=== PATIENT | male | born 1945 | race Caucasian/White ===

== ENCOUNTER → 2017-09-07 | Outpatient (CLI) | payer OTHER ==
[~2017-09-07] MED LIST: ADULT LOW DOSE81 MG PO; ANDROGEL1.25 GM TD; ATORVASTATIN CA40 MG PO; CENTRUM SILVER1 EAC4 PO; CIALIS10 MG PO; GLUCOPHAGE500 MG PO; GLYBURIDE 2.52.5 M1 PO; IBUPROFEN 200200 M1 PO; NITROGLYCERIN0.4 MG SUBLING; OMEGA 3-6-9 CO1 EACH PO; TOPROL XL25 MG PO
== END ==
LOC: ULTRA 08:42
DX: K21.9 Gastro-esophageal reflux disease without esophagitis (principal); K31.89 Other diseases of stomach and duodenum; K80.80 Other cholelithiasis without obstruction; N28.1 Cyst of kidney, acquired; E11.9 Type 2 diabetes mellitus without complications; I25.10 Atherosclerotic heart disease of native coronary artery without angina pectoris; G47.33 Obstructive sleep apnea (adult) (pediatric); N52.8 Other male erectile dysfunction; Z95.1 Presence of aortocoronary bypass graft

== ENCOUNTER → 2017-09-16 | Outpatient (CLI) | payer OTHER | LOC: RAD 15:57 | DX: M25.521 Pain in right elbow (principal) ==

== ENCOUNTER → 2017-10-16 | Outpatient (CLI) | payer OTHER | LOC: MRI 07:13 | DX: M19.011 Primary osteoarthritis, right shoulder (principal); M75.91 Shoulder lesion, unspecified, right shoulder; M75.52 Bursitis of left shoulder; Z95.1 Presence of aortocoronary bypass graft ==

== ENCOUNTER 2018-07-09 10:10 | Inpatient (IN) | payer OTHER ==
[~2018-07-09] VITALS: Ht 180.3 cm; Wt 107.5 kg
--- NOTE | ~2018-07-09 | H ---
[facility] [place] [address] HISTORY AND PHYSICAL Name: JOSEPH BRITTON Room #: 463-P [facility] IN M.R.#: [id number] Admission: 07/09/18 Attend Phys: Bethany Elder MD Discharge: Date of : 43 Report #: [id number] THIS REPORT FOR: //name// CC: Billy Elder DATE OF SERVICE: 07/09/2018 CHIEF COMPLAINT: Right lower quadrant abdominal pain. HISTORY OF PRESENT ILLNESS: The patient is a 72-year-old gentleman admitted from the office today with a 2-3 day history of abdominal pain. Couple of days ago, he was complaining of pain in the right lower quadrant, described as a sort of a cramp or deep ache with sharp features at times. He has had loss of appetite, but no nausea or vomiting. He reports a normal bowel movement 2 days ago. He was seen in the office yesterday and lab work was obtained revealing slightly elevated white count around 11,000 and he was placed on oral antibiotics. He had a followup today with no improvement in his symptoms and he has been referred for inpatient evaluation. PAST MEDICAL HISTORY: Cholelithiasis, hypertension, diabetes type 2. PAST SURGICAL HISTORY: None. FAMILY HISTORY: Noncontributory. SOCIAL HISTORY: No chronic alcohol or tobacco use. , lives at home. ALLERGIES: None. MEDICATIONS: Multivitamin, fish oil, Protonix, glyburide, metformin, metoprolol. REVIEW OF SYSTEMS: Denies headache, chest pain, shortness of breath, productive cough, dysuria, nausea, vomiting, myalgias, syncope or fall. OBJECTIVE: VITAL SIGNS: Per nursing note. GENERAL: He is awake and alert, in no distress. HEAD AND NECK: Unremarkable. LUNGS: Clear. HEART: Regular. ABDOMEN: Soft, normoactive bowel sounds. Slightly tender to deep palpation in right lower quadrant. No rebound or guarding or tenderness. EXTREMITIES: No edema. NEUROLOGIC: Intact. [facility] [address] [place] [address] HISTORY AND PHYSICAL Name: REBAJOSEPH [facility] #: [facility].#: [id number] Admission: 07/09/18 Attend Phys: Bethany Elder MD Discharge: Date of : 43 Report #: [id number] ASSESSMENT: 1. Right lower quadrant abdominal pain. 2. Diabetes type 2. 3. Hypertension. PLAN: Lab cultures. CT will be obtained and I have asked Dr. Barrios to see him in consultation. <ELECTRONICALLY SIGNED> By: Fred Jules MD 07/09/18 1349 1146 1158 Fred Jules MD /nt
--- NOTE | ~2018-07-09 | D ---
[facility] [place] [address] DISCHARGE SUMMARY Name: REBAJOSEPH Room #: 463-P [facility] IN M.R.#: [id number] Admission: 07/09/18 Attend Phys: Rosanne Velásquez Discharge: 07/13/18 Date of : 43 Report #: [id number] THIS REPORT FOR: //name// CC: Billy Malcolm DATE OF SERVICE: 07/13/2018 FINAL DIAGNOSES: 1. Acute appendicitis. 2. Diabetes type 2. HOSPITAL COURSE: The patient was admitted with abdominal pain and CT revealed acute appendicitis. He was taken to the OR the following day by Dr. Barrios for laparoscopic appendectomy and umbilical hernia repair. Please see those op notes. Postoperatively, he had complications with constipation that required laxatives and eventually had a bowel movement and he was tolerating a diet. Other home medications were continued. DISPOSITION: He is being discharged home with diabetic diet, activity as tolerated, resume all usual home medications. Follow up with Dr. Malcolm in 2 weeks. No lifting over 15 pounds for 3 weeks. <ELECTRONICALLY SIGNED> By: Fred Jules MD 07/14/18 1252 1210 1627 Fred Jules MD /nt
--- NOTE | ~2018-07-09 | O ---
[facility] [place] [address] OPERATIVE REPORT Name: JOSEPH BRITTON Room #: 463-P ADM IN M.R.#: [id number] Admission: 07/09/18 Attend Phys: Rosanne Velásquez Discharge: Date of : 44 Report #: [id number] THIS REPORT FOR: //name// CC: Billy OLMOS MD DATE OF SERVICE: 07/10/2018 PREOPERATIVE DIAGNOSES: 1. Retrocecal appendicitis. 2. Umbilical hernia. POSTOPERATIVE DIAGNOSES: 1. Retrocecal appendicitis. 2. Umbilical hernia. PROCEDURES PERFORMED: 1. Laparoscopic appendectomy. 2. Repair of umbilical hernia. SURGEON: Triston Barrios M.D. ANESTHESIA: General anesthesia. COMPLICATIONS: None. ESTIMATED BLOOD LOSS: 10 mL PROCEDURE NOTE: With the patient under general anesthesia, abdomen was prepped and draped in sterile fashion. The patient just received his antibiotic dose that was started last night. Timeout was performed. A 0.25% Marcaine was used to anesthetize the skin. A curvilinear incision was then made infraumbilically. After incising through the skin, the skin was lifted off of the umbilical hernia. There was properitoneal fat that pushed through. The fascia edges were identified. 0 Vicryl suture placed on the fascia for retraction. Veress needle was then placed through the peritoneum. Abdominal cavity was then insufflated with CO2. After creating pneumoperitoneum pressure of 15, 11 mm trocar was placed into the pneumoperitoneum under visualization. No harm to the underlying tissue. Two 5 mm trocars were then placed additional to the 12 mm trocar, one in the mid epigastrium and the other one about 2 inches below the umbilicus. The patient was then placed in a slight Trendelenburg position, right side tilted up. The tip of the appendix was identified. The appendix is retrocecal. The cecum was attached to the wall. This peritoneal reflection was freed using Harmonic scissor. This allowed better visualization of the appendix. The appendix was then grasped at the tip. The appendix was freed using Harmonic scissor. The patient's colon is more medial located. There was a significant [facility] [address] [place] [address] OPERATIVE REPORT Name: JOSEPH BRITTON Room #: 463-P ADM IN M.R.#: [id number] Admission: 07/09/18 Attend Phys: Rosanne Velásquez Discharge: Date of : 44 Report #: [id number] amount of fat that is lateral to the colon between the colon and the appendix. The appendix was then divided from the mesoappendix. This then allowed the appendix to be isolated. Harmonic scalpel was used to divide the mesoappendix in a serial manner. The appendix was then isolated at the base. A 5 mm camera was then used through the inferior 5 mm trocar and the Endo-SIMON was placed through the 12 mm trocar. This was placed across the base. After about 10 seconds, the SIMON was deployed. The staple lines well formed. The appendix was placed in a specimen bag and retrieved through the infraumbilical port. The appendix within the specimen bag came out easily. The sight of the appendix was then visualized. Well-formed staple line seen. No bleeding was identified. The patient was then flattened out. The CO2 was turned off. CO2 was evacuated as much as possible. The inferior trocar was removed. The superior 5 mm trocars were then removed. The umbilical trocar was then removed. The fascial edges were then isolated and 0 PDS suture [id number] x 2 was used to close the fascia defect repairing the umbilical hernia. Subcutaneous tissue was irrigated clean. The skin was then closed with 5-0 PDS. Steri-Strip, Band-Aids applied. The patient tolerated procedure well. <ELECTRONICALLY SIGNED> By: Triston Barrios MD 07/12/18 1022 1746 1924 Triston Barrios MD /nt
--- NOTE | ~2018-07-09 | PATH ---
[facility] [address] [place] [address] PATHOLOGY RPT PROCEDURE Name: JOSEPH BRITTON Room #: 463-P [facility] IN M.R.#: [id number] Admission: 07/09/18 Date of : 43 Discharge: 07/13/18 Report #: [id number] Path Case #: [id number] [facility] Accession Number: [id number] . 01 Material submitted: . APPENDIX . 01 Clinical history: . Acute appendicitis . 02 Diagnosis: Appendix, appendectomy: - Marked acute appendicitis along with marked serositis. (IUV:paediatric physiotherapist; 07/13/2018) MBR/07/13/2018 . 02 Electronically signed: . Tracey Bryant MD, Pathologist NPI- [id number] . 01 Gross description: . The specimen is received in formalin, labeled "Joseph Britton, appendix" and consists of an appendix measuring 7.3 cm in length and ranging from 0.6-1.2 cm in diameter with mesoappendix lining the entire specimen ranging from 0.1-0.8 cm. The serosa is bautista-brown with thick fibrous adhesions. Sectioning reveals a central lumen with a possible perforation and a diverticulum near the tip measuring 0.2-0.3 cm. Timber Cruiser sections are submitted in A1-A2. (SDY; 07/12/2018) SYU/SYU . 02 Pathologist provided ICD-10: K35.80 . 02 CPT . 496146 Specimen Comment: A courtesy copy of this report has been sent to Specimen Comment: [phone], . Specimen Comment: Report sent to / DR PAGE Specimen Comment: A duplicate report has been generated due to demographic updates. Performed at: [address] [id number] MD Rajesh Serrano MD Phone: [phone] Performed at: [address] [address] PATHOLOGY RPT PROCEDURE Name: JOSEPH BRITTON Room #: 463-P DIS IN M.R.#: [id number] Admission: 07/09/18 Date of : 43 Discharge: 07/13/18 Report #: [id number] Path Case #: [id number] [address] [place] [id number] MD Tracey Bryant MD Phone: [phone]
--- NOTE | ~2018-07-09 | HC ---
[facility] [place] [address] CONSULTATION Name: JOSEPH BRITTON Room #: 463-P ADM IN M.R.#: [id number] Admission: 07/09/18 Attend Phys: Rosanne Velásquez Discharge: Date of : 44 Report #: [id number] THIS REPORT FOR: //name// CC: Billy Malcolm DATE OF SERVICE: 07/10/2018 REASON FOR CONSULTATION: Acute appendicitis. HISTORY OF PRESENT ILLNESS: The patient is a 72-year-old who woke up morning with severe gassy abdominal pain in the epigastric area. The pain subsequently moved to the right lower quadrant. No nausea or vomiting. The pain was pretty intense and he went to see Dr. Damon in the office, labs were drawn and started on p.o. antibiotics. Yesterday, the pain did not get better. He went back and was admitted by Dr. Jules. CT scan late yesterday did show acute appendicitis, but no gangrene or rupture finding, it is just enlarged and somewhat retrocecal located. The patient denies any diarrhea, has not had any bowel movement since . The patient denies any fevers or chills. No difficulty urinating. PAST MEDICAL HISTORY: The patient does have a history of heart disease and had CABG in 2014, been followed by Dr. Calderon. He was seen in February, he was doing well. The patient does have diabetes. No abdominal surgery. He does have a known history of gallbladder and gallstones and some gallbladder symptoms. ALLERGIES: He is not allergic to anything. PHYSICAL EXAMINATION: The patient is moderately obese. Abdomen is soft and nondistended. No diffuse tenderness, negative Rovsing sign. He is tender in the right lower abdomen laterally. This is where his appendix is on CT scan. No guarding or rigidity. He is not in acute distress. IMPRESSION: The patient is a 72-year-old with abdominal pain that started about 5:00 a.m. morning. The patient does have appendicitis, which is retrocecal located. RECOMMENDATION: The patient is recommended to have a laparoscopic appendectomy. The procedure was discussed in detail. Risk of bleeding, infection, injury to surrounding tissue was discussed. The expected recovery was also discussed. The patient understands and wishes to proceed. <ELECTRONICALLY SIGNED> By: Triston Barrios MD 07/12/18 1022 0819 1200 Triston Barrios MD /nt
--- NOTE | ~2018-07-09 | EKG ---
[address] [place] [address] ELECTROCARDIOGRAM REPORT Name: JOSEPH BRITTON Room #: 463-P ADM IN M.R.#: [id number] Admission: 07/09/18 Attend Phys: Rosanne Velásquez Discharge: Date of : 44 Report #: [id number] THIS REPORT FOR: //name// [facility] Test Date: 2018-07-10 Test Time: 08:39:51 Pat Name: JOSEPH BRITTON Department: Room: 463 P Gender: M Rubber Block Layer: Rosanne MCKEON : 1945 Requested By: Triston Barrios Order Number: [id number] MD: Jonh Calderon Measurements Intervals Aguilar Rate: 65 P: 65 CT: 140 QRS: 0 QRSD: 91 T: 34 QT: 393 QTc: 409 Interpretive Statements Sinus rhythm No significant abnormality No previous ECG available for comparison Electronically Signed On 07-10-2018 10:47:08 FREIGHT COORDINATOR by Jonh Calderon [email or web address] <ELECTRONICALLY SIGNED> By: Jonh Calderon MD, [facility] 07/10/18 1047 0839 0839 Jonh Calderon MD, FACC /EPI
[~2018-07-09 10:10] MED LIST changes: -OMEGA 3-6-9 CO1 EACH PO; +OMEGA 3-6-9 CO400 MG PO
[2018-07-09] MEDS ORDERED: GLYBURIDE 2.52.5 MG PO (11:23)
[2018-07-09] MEDS ORDERED: PROTONIX 20 MG20 M1 PO (11:25)
[2018-07-09 12:14] VITALS: BP 144/70
[2018-07-09 12:23] LABS: ABSOLUTE NEUTROPHILS 4.6 thou/uL (1.4-8.2); BASOPHILS 0.4 % (0.0-2.0); EOSINOPHILS 1.1 % (0.0-3.0); HEMATOCRIT 45.2 % (42.0-52.0); HEMOGLOBIN 15.1 gm/dL (14.0-18.0); LYMPHOCYTES 21.4 % (24.0-44.0); MCHC 33.3 g/dL (28.0-37.0); MCV 87.2 fL (80.0-100.0); MONOCYTES 9.3 % (1.0-8.0); PLATELET COUNT 212 thou/uL (150-400); POLYS 67.8 % (36.0-66.0); RBC 5.18 mil/uL (4.50-6.00); WBC 6.8 thou/uL (4.0-11.0)
[2018-07-09 12:40] LABS: ALBUMIN 3.7 g/dL (3.4-5.0); CALCIUM 8.9 mg/dL (8.5-10.1); CREATININE 1.3 mg/dL (0.7-1.3); POTASSIUM 4.5 mmol/L (3.5-5.1); TOTAL BILIRUBIN 0.8 mg/dL (<0.1-1.0); TOTAL PROTEIN 7.6 g/dL (6.4-8.2)
[2018-07-09 17:57] VITALS: BP 134/79
[2018-07-09 19:43] VITALS: BP 139/88
[2018-07-09 23:12] LABS: URINE BILIRUBIN NEGATIVE (Negative); URINE BLOOD NEGATIVE (Negative); URINE CLARITY CLEAR; URINE COLOR YELLOW; URINE GLUCOSE-RANDOM* NEGATIVE (Negative); URINE KETONES NEGATIVE (Negative); URINE LEUKOCYTES-REFLEX NEGATIVE (Negative); URINE NITRITE-REFLEX NEGATIVE (Negative); URINE PROTEIN (DIPSTICK) NEGATIVE (Negative); URINE UROBILINOGEN 0.2 E.U./dl (0.2-1.0)
[2018-07-10 00:29] VITALS: BP 113/66
[2018-07-10 05:10] VITALS: BP 117/73
[2018-07-10 15:20] VITALS: BP 147/83
[2018-07-10 16:30] VITALS: BP 157/90
[2018-07-10 19:57] VITALS: BP 136/66
[2018-07-11 03:49] VITALS: BP 127/71
[2018-07-11 07:28] VITALS: BP 133/76
[2018-07-11 14:35] VITALS: BP 127/75
[2018-07-11 19:56] VITALS: BP 119/72
[2018-07-12 05:53] VITALS: BP 142/79
[2018-07-12 07:30] VITALS: BP 162/83
[2018-07-12 12:38] LABS: HEMATOCRIT 42.7 % (42.0-52.0); HEMOGLOBIN 14.2 gm/dL (14.0-18.0); MCH 29.2 pg (26.0-34.0); MCHC 33.2 g/dL (28.0-37.0); MCV 88.1 fL (80.0-100.0); RBC 4.85 mil/uL (4.50-6.00); RDW 13.9 % (10.5-14.5)
[2018-07-12 12:47] LABS: CALCIUM 8.7 mg/dL (8.5-10.1); CREATININE 1.1 mg/dL (0.7-1.3); POTASSIUM 4.5 mmol/L (3.5-5.1)
[2018-07-12 13:14] VITALS: BP 165/88
[2018-07-12 20:00] VITALS: BP 155/60
[2018-07-12 23:52] VITALS: BP 166/79
[2018-07-13 02:30] VITALS: BP 103/54
[2018-07-13 08:49] VITALS: BP 147/81
[2018-07-13 12:23] VITALS: BP 147/81
== END 2018-07-13 14:03 | disposition home or self-care (01) | DRG 342 ==
LOC: 4W 10:10
PROVIDERS: Internal Medicine Geriatric Medicine
PROC: 0DTJ4ZZ Resection of Appendix, Percutaneous Endoscopic Approach (ICD-10-PCS; principal; 2018-07-10)
PROC: 0WQF4ZZ Repair Abdominal Wall, Percutaneous Endoscopic Approach (ICD-10-PCS; principal; 2018-07-10)
DX: K42.9 Umbilical hernia without obstruction or gangrene (principal); K35.80 Unspecified acute appendicitis; E11.9 Type 2 diabetes mellitus without complications; I10 Essential (primary) hypertension; K59.00 Constipation, unspecified; Z95.1 Presence of aortocoronary bypass graft; Z79.84 Long term (current) use of oral hypoglycemic drugs; Z79.899 Other long term (current) drug therapy; Z28.21 Immunization not carried out because of patient refusal
CPT/HCPCS: 10047; 50010; 50101; 50243; 50246; 50411; 50555; 50558; 53307; 53310; 53312; 53335; 56525; 56526; 62110; 62900; 70005

== ENCOUNTER → 2018-08-02 | Outpatient (CLI) | payer OTHER ==
[~2018-08-02] MED LIST changes: +GLYBURIDE 2.52.5 MG PO; +PROTONIX 20 MG20 M1 PO
== END ==
LOC: MRI 09:23
DX: M51.17 Intervertebral disc disorders with radiculopathy, lumbosacral region (principal); M48.062 Spinal stenosis, lumbar region with neurogenic claudication; M12.88 Other specific arthropathies, not elsewhere classified, other specified site

== ENCOUNTER → 2018-08-12 | Outpatient (CLI) | payer OTHER ==
[~2018-08-12] VITALS: Ht 180.3 cm; Wt 105.5 kg
[~2018-08-12] MED LIST changes: +COQ-10100 MG PO; +GLUCOPHAGE XR750 MG PO; +GLYBURIDE 5 MG T5 M1 PO; +PROTONIX40 M1 PO
--- NOTE | ~2018-08-12 | HPC ---
[facility] [address] [place] [address] PAIN MANAGEMENT CONSULTATION Name: JOSEPH BRITTON Room #: REG [facility].#: [id number] Admission: 08/12/18 Attend Phys: Martinez Silva MD Discharge: Date of : 43 Report #: [id number] THIS REPORT FOR: //name// CC: Babar Silva DATE OF SERVICE: 08/12/2018 The patient presents today with lumbar radiculopathy pain, is on his right side, radiates into the right leg and it follows an L3 distribution to the anterior thigh. He has previously been treated in this clinic with good response. He would like to repeat another epidural injection. This current episode of pain began after a long car trip. He was getting luggage in and out of the car during that trip and since that time he has had pain that he describes as a gnawing, intermittent sensation, worse getting up and down from a chair or lifting or lying down. He scores it as a 5/10. He alleviates it with repositioning. He is an insulin-dependent type 2 diabetic and his blood sugar with previous injection vickie to over 300. MEDICATIONS: CoQ10, Glucophage, Toprol, Lipitor, omega 3 and Centrum Silver. ALLERGIES: None. PAST MEDICAL HISTORY: Significant for hypertension, four coronary artery bypass by Dr. Tony Garcia at [facility]. PAST SURGICAL HISTORY: Also includes an appendectomy in 2018. 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 Denies use of tobacco and alcohol. He does not appear to be a fall risk. The patient is . PHYSICAL EXAMINATION: GENERAL: He is a [employer] supporter wearing [employer] Great hat. VITAL SIGNS: Blood pressure 128/65, heart rate 88 and respirations 16. BMI is 32. MUSCULOSKELETAL: He moves from sitting to standing, but has an antalgic gait. He has limited range of motion of the lumbar spine with local tenderness. No scars are noted. Straight leg raising is positive on the right reproducing pain into the anterolateral thigh. CHEST: Clear. CARDIAC: Rhythm is regular. ABDOMEN: Soft and no organomegaly. [facility] [address] [place] [address] PAIN MANAGEMENT CONSULTATION Name: JOSEPH BRITTON Room #: REG [facility]#: [id number] Admission: 08/12/18 Attend Phys: Martinez Silva MD Discharge: Date of : 43 Report #: [id number] IMPRESSION: MRI scan reviewed. It demonstrates evidence of a concordant L2-L3 broad-based disk bulge resulting in spinal stenosis measuring 8 mm. There is also bilateral neural foraminal narrowing at L4-L5 and L5-S1 to be expected for age. Primary pain generator appears to be the L2-L3 spinal stenosis, which has slightly progressed since 2009. RECOMMENDATION: Epidural steroid injection under fluoroscopic guidance. PROCEDURE: He was taken to fluoroscopic suite for treatment, placed prone, skin prepped with ChloraPrep. Skin anesthetized over the L2-L3 interspace. A 20-gauge Tuohy epidural needle was advanced first attempt into the epidural space with loss of resistance technique. There was no blood or CSF aspirated. 1 mL of Omnipaque was injected and spread of dye observed into the epidural space followed by 3 mL of 0.5% lidocaine mixed with 80 mg of triamcinolone. He tolerated the procedure well, was observed for 45 minutes and discharged. Followup visit planned in 1 month and repeat injection may be considered. By: 1722 2217 Martinez Silva MD /nt
[2018-08-12 15:15] VITALS: BP 128/65
== END | disposition home or self-care (01) ==
LOC: PAIN 09:19
DX: M54.16 Radiculopathy, lumbar region (principal); G89.29 Other chronic pain; I10 Essential (primary) hypertension; E11.9 Type 2 diabetes mellitus without complications; Z79.4 Long term (current) use of insulin; Z95.1 Presence of aortocoronary bypass graft; Z90.49 Acquired absence of other specified parts of digestive tract; Z98.890 Other specified postprocedural states; Z79.899 Other long term (current) drug therapy

== ENCOUNTER 2019-05-02 10:27 | Emergency (ER) | payer OTHER ==
[~2019-05-02] VITALS: Ht 180.3 cm; Wt 104.3 kg
[2019-05-02 11:41] LABS: URINE BILIRUBIN NEGATIVE (Negative); URINE BLOOD NEGATIVE (Negative); URINE CLARITY CLEAR; URINE COLOR YELLOW; URINE GLUCOSE-RANDOM* NEGATIVE (Negative); URINE KETONES NEGATIVE (Negative); URINE LEUKOCYTES NEGATIVE (Negative); URINE NITRITE NEGATIVE (Negative); URINE PROTEIN (DIPSTICK) NEGATIVE (Negative); URINE SPECIFIC GRAVITY >= 1.030 (1.005-1.035); URINE UROBILINOGEN 0.2 E.U./dl (0.2-1.0)
[2019-05-02 11:41] LABS: ABSOLUTE NEUTROPHILS 4.9 thou/uL (1.4-8.2); BASOPHILS 0.3 % (0.0-2.0); HEMATOCRIT 44.9 % (42.0-52.0); LYMPHOCYTES 18.9 % (24.0-44.0); MCH 29.4 pg (26.0-34.0); MCHC 33.5 g/dL (28.0-37.0); MONOCYTES 6.6 % (1.0-8.0); PLATELET COUNT 207 thou/uL (150-400); POLYS 72.2 % (36.0-66.0); RDW 14.1 % (10.5-14.5); WBC 6.7 thou/uL (4.0-11.0)
[2019-05-02 11:48] LABS: CREATININE 1.1 mg/dL (0.7-1.3); POTASSIUM 4.9 mmol/L (3.5-5.1)
[2019-05-02 11:52] LABS: ALBUMIN 3.9 g/dL (3.4-5.0); TOTAL BILIRUBIN 0.7 mg/dL (<0.1-1.0); TOTAL PROTEIN 7.3 g/dL (6.4-8.2)
[2019-05-02 15:44] VITALS: BP 124/61
--- NOTE | 2019-05-03 09:11 | EKG ---
[place] [address] [facility] [address] ELECTROCARDIOGRAM REPORT Name: JOSEPH BRITTON [id number] Admission: 05/02/19 Attend Phys: Discharge: 05/02/19 Date of : 44 Report #: [id number] THIS REPORT FOR: //name// [facility] ED Test Date: 2019-05-02 Test Time: 10:39:22 Pat Name: JOSEPH BRITTON Department: Room: Gender: Materials Handling Coordinator: [facility] : 1945 Requested By: Kosta Man Order Number: [id number] MD: Jonh Calderon Measurements Intervals [place] Rate: 68 P: 77 [place]: 127 QRS: 3 QRSD: 89 T: 55 QT: 397 QTc: 423 Interpretive Statements Sinus rhythm Normal tracing Compared to ECG 07/10/2018 08:39:51 No significant changes Electronically Signed On 05-03-2019 9:11:39 CDT by Jonh Calderon [email or web address] <ELECTRONICALLY SIGNED> By: Jonh Calderon MD, [facility] 05/03/19 0911 1039 1039 Jonh Calderon MD, FACC /EPI
== END 2019-05-02 16:01 | disposition home or self-care (01) ==
LOC: ER 10:27
PROVIDERS: Emergency Medicine
DX: R10.84 Generalized abdominal pain (principal); E11.9 Type 2 diabetes mellitus without complications; E78.5 Hyperlipidemia, unspecified; K21.9 Gastro-esophageal reflux disease without esophagitis; Z95.1 Presence of aortocoronary bypass graft; Z90.49 Acquired absence of other specified parts of digestive tract; Z87.891 Personal history of nicotine dependence

== ENCOUNTER 2019-05-04 12:36 | Inpatient (IN) | payer OTHER ==
[~2019-05-04] VITALS: Ht 180.3 cm; Wt 99.8 kg
[2019-05-04 14:42] VITALS: BP 112/63
--- NOTE | 2019-05-04 17:23 | H ---
[facility] [place] [address] HISTORY AND PHYSICAL Name: JOSEPH BRITTON Room #: 150-4 [facility]..#: [id number] Admission: 05/04/19 Attend Phys: Triston Barrios MD Discharge: Date of : 44 Report #: [id number] THIS REPORT FOR: //name// CC: Babar Barrios PREOPERATIVE DIAGNOSIS: Acute cholecystitis with cholelithiasis. HISTORY OF PRESENT ILLNESS: The patient is a 73-year-old who has had abdominal pain. I have operated on him 2017 for acute appendicitis. The patient did have a known history of gallstones and I thought that he probably has symptomatic gallstone disease back then. The patient developed abdominal pain in the upper part of the abdomen around 4-5 p.m. on Thursday. This as a gas pressure. This was after eating a cheeseburger. Thursday, the pain was not as bad, but he did not feel normal. The patient on Thursday started to complain of pain. No back pain or shoulder pain. Had a little bit of nausea. No vomiting. The patient took Gaviscon and some Zantac. This is besides his Protonix. He has had decreased appetite. The patient went to the Emergency Room on Thursday morning. His white count was normal. Liver functions are normal. The patient had an ultrasound and a CAT scan. Both of these shows gallbladder wall thickening with small amount of pericholecystic fluid and small stones that were mobile. The patient was discharged from the ER yesterday and saw Dr. Malcolm who recommended that he come and see me for acute cholecystitis. The patient was evaluated today and agrees that he does have acute cholecystitis. He is overall not real miserable, but his pain has not resolved. The patient has not had any fevers or chills. He has got some constipation, no diarrhea. He has had pain usually after eating greasy type foods. A month ago he had an episode after eating chicken fried steak. No history of jaundice, dark urine, or lisa-colored stool. The patient is recommended to proceed with gallbladder surgery. PAST MEDICAL HISTORY: Coronary artery disease. He is status post CABG in [address] Garcia at [facility]. The patient had an appendectomy 07/12/2018 by me. The patient has a history of diabetes type 2. Denies any high blood pressure. The blood pressure usually is low. No lung trouble, no liver, no kidney problems, no bleeding disorder. ALLERGIES: He is not allergic to anything. MEDICATIONS: The patient takes metformin 750 mg once a day, glyburide 25 mg once a day, atorvastatin 40 mg once a day, metoprolol 25 mg twice a day, aspirin 81 mg. FAMILY HISTORY: Cancer and diabetes. 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 He quit smoking in 1985. He quit drinking in 1974. [address] [address] HISTORY AND PHYSICAL Name: REBAJOSEPH Room #: 150-4 [facility]..#: [id number] Admission: 05/04/19 Attend Phys: Triston Barrios MD Discharge: Date of : 43 Report #: [id number] REVIEW OF SYSTEMS: The patient did see Dr. Calderon 08/2018 this year. Had an EKG done. He does not have any active cardiac issues. No chest pains and no shortness of breath. No numbness or weakness on review of systems. PHYSICAL EXAMINATION: GENERAL: The patient is well-nourished male. He is not in acute distress. He is moderately uncomfortable. HEENT: Sclerae are nonicteric. Pupils react to light. Extraocular muscles are intact. Oropharynx is clear. NECK: Soft and supple, no masses, no JVD. LUNGS: Clear to auscultation. HEART: Regular rate and rhythm. No murmur or gallop. ABDOMEN: Soft with mild tenderness in right upper quadrant. No guarding. No mass, no rigidity. EXTREMITIES: No cyanosis, clubbing or edema. IMPRESSION: The patient is a 73-year-old with abdominal pain that started Thursday. Thursday, he was somewhat better, but Thursday pain came back and his gallbladder looks inflamed on CT and ultrasound yesterday. The patient is recommended to proceed with laparoscopic cholecystectomy. The patient understands the surgery, could be more difficult due to the acute inflammation, but I think the surgery can be accomplished safely. There is risk of bleeding, infection and risk of common bile duct injury. This was discussed. The patient understands and wishes to proceed. The patient did have an EKG in the ER yesterday and that was unremarkable. He does not have any active cardiac problem. I did tell him to not take his metformin today. I did write some oral antibiotics to start today. <ELECTRONICALLY SIGNED> By: Triston Barrios MD 05/04/19 1723 2139 54 Triston Barrios MD /nt
[2019-05-04 20:45] VITALS: BP 147/59
[2019-05-04 21:20] VITALS: BP 158/79
--- NOTE | 2019-05-05 04:00 | NUR ---
alert and oriented. good u/o. Moderate pain-received PO pain meds as well as fentanyl.Denies nausea. Pt took some HS broth, yoghurt and crackers-.Adebrilw. Lapsites look okay. LEILA with 10cc of serosanguinous output.
[2019-05-05 05:01] VITALS: BP 135/60
[2019-05-05 08:00] VITALS: BP 132/65
--- NOTE | 2019-05-05 12:43 | O ---
[facility] [place] [address] OPERATIVE REPORT Name: JOSEPH BRITTON Jessica Room #: 430-P ADM IN M.R.#: [id number] Admission: 05/05/19 Attend Phys: Triston Barrios MD Discharge: Date of : 43 Report #: [id number] THIS REPORT FOR: //name// CC: Babar Barrios DATE OF SERVICE: 05/04/2019 PREOPERATIVE DIAGNOSIS: Acute cholecystitis with cholelithiasis. POSTOPERATIVE DIAGNOSES: Acute hydropic gallbladder with cholelithiasis and also stone in the cystic duct. PROCEDURE PERFORMED: Laparoscopic cholecystectomy with cholangiogram. SURGEON: Triston Barrios MD ANESTHESIA: General anesthesia. COMPLICATIONS: None. ESTIMATED BLOOD LOSS: 10 mL. FINDINGS: The cystic duct was dilated and thickened and there were multiple stones and sludge in the cystic duct. These were extracted by milking the cystic duct. Cholangiogram was then obtained. The cystic duct and common duct were visualized. No harm to the common duct was seen. Also no obvious filling defects seen in the rest of the cystic duct nor the common duct. PROCEDURE: The abdomen was prepped and draped in sterile fashion. The patient had a previous umbilical hernia repair. The incision was made above the umbilicus after incising through the skin and subcutaneous tissue. An incision was made above the umbilicus about an inch or so. Fascia was identified. Fascia was then opened under visualization, 0 Vicryl suture placed on the fascia edges for retraction. Veress needle was then placed through the peritoneum. Abdominal cavity was insufflated with CO2. After creating pneumoperitoneum, no harm to underlying tissue. Two 5 mm trocars were placed in right upper quadrant and a 5 mm trocar in the right epigastrium. The gallbladder was identified and noted to be dilated, enlarged, thick. The gallbladder was also fairly tense. A needle was placed in the gallbladder. The gallbladder was aspirated about close to 60 mL. The fluid that came back is clearish looking consistent with hydropic gallbladder. There were some adhesions that is chronic over the gallbladder. These were taken down. The proximal part of the gallbladder was then isolated. Laparoscopic peanut was used for more of a dissection, this area was noted to be thickened. I was able to identify the cystic duct. The cystic artery was found [address] [address] OPERATIVE REPORT Name: REBAJOSEPH Room #: 430-P [facility] IN .R.#: [id number] Admission: 05/05/19 Attend Phys: Triston Barrios MD Discharge: Date of : 43 Report #: [id number] just adjacent to this. This cystic artery was more of a smaller size. This was isolated, clipped ____ cystic duct was then isolated ____ junction of the cystic ____ enlarged and firm, and suspicious for multiple stones in the cystic duct. A clip was placed in junction of the cystic duct to the gallbladder. Because of the larger size, the clip did not go all the way across. The cystic duct was then opened and right upon opening, I can see small stones. The cystic duct was milked extensively getting numerous small stones and sludge material out. When I felt that there were no further stones present, a cholangiogram catheter was placed. Fluoroscopic cholangiogram was obtained. The cystic duct did fill out well. I can see the cystic duct tapers down to a pretty small size, but it did run parallel to the common duct and then joined the common duct further down. Common duct filled out well. I did not see any stone in the common duct. Common duct is small size. The cholangiogram catheter was then removed. The cystic duct was too large for a clip. The cystic duct was divided. Then, 0 PDS Endoloop was placed across the cystic duct. Because of the dissection that was necessary for getting the stones out of the cystic duct, I decided to place a drain at the end of the case adjacent to the ligated part of the cystic duct. The posterior cystic artery was found. This was isolated, divided between clips. The gallbladder was then divided from the liver bed. The gallbladder was placed in a specimen bag, retrieved through the 11 mm trocar site. Because of thickening of the gallbladder, I did enlarge the incision and was able to get the bag and the gallbladder out. Gallbladder was opened off the field and there is thickening of the gallbladder wall. There are still some small stones and 1 flat dark looking stone in the gallbladder. Sludge was also seen. The liver bed was checked, hemostasis obtained, no bleeding was identified. A #19 Chucho drain was left in the Barksdale's pouch. This was brought out through the lateral 5 mm trocar. Trocars removed. CO2 was evacuated. The drain was sutured with 2-0 silk suture to the skin. The fascia defect at the 11 mm trocar site was visualized and closed with [id number] 0 Vicryl x 2 and a single interrupted 0 Vicryl. Skin was irrigated, closed with 5-0 PDS. Steri-Strip, Band-Aids applied. The patient tolerated the procedure well and was taken to recovery room. <ELECTRONICALLY SIGNED> By: Triston Barrios MD 05/05/19 [id number] Triston Barrios MD /nt
--- NOTE | 2019-05-05 14:00 | NUR ---
INITIAL ASSESSMENT: Pt evaluated for d/c planning needs. Reviewed chart and spoke with nurse, pt and spouse. Pt is alert and oriented. Pt lives in house with spouse and was independent with ADL's prior to admission to the hospital. Pt remains active in the community and is driving. Pt uses no DME and had home health in 2014 after heart surgery. Pt plans on returning home on d/c from hospital. Will remain available to assist as needed.
[2019-05-05 16:15] VITALS: BP 140/58
--- NOTE | 2019-05-05 19:40 | NUR ---
PT A&OX4, AMBULATES SELF IN ROOM. IV INTACT IN R FA. LAP CANDACE SITES X4 WITH 1 LEILA DRAIN TO RIDE SIDE C/D/I. PT VERY CONCERNED WITH DEVELOPING CONSTIPATION DID HAVE BM 2 DAYS AGO. SENNAKOT AND MOM GIVEN EARLIER THIS AM. PT HAS WALKED IN THE FAN SEVERAL TIMES BOWEL SOUNDS ARE ACTIVE THOUGHS PT DENIES PASSING ANY GAS. WILL CONT POC.
[2019-05-05 20:25] VITALS: BP 139/75
--- NOTE | 2019-05-06 03:25 | NUR ---
PATIENT ALERT AND ORIENTED X4. C/O PAIN, MED GIVEN. C/O BEING CONSTIPATED. DR WAS CALLED AND RECIEVED AN ORDER FOR MAG CITRATE 1/2 BOTTLE, GIVEN. NO RESULTS OF YET. EXPLAINED TO PATIENT THAT BOTH IV AND PO MEDS WILL MAKE HIM CONSTIPATED. WANTED IV MED BOTH TIMES PAIN MED GIVEN. EXPLAINED THAT THE PO MED WOULD LAST A LOT LONGER. LAP CANDACE INCISIONS COVERED WITH BANDAIDS. CITE WITH LEILA DRAIN HAS CLEAR DRESSING. DRAINAGE IS LIGHT RED IN COLOR. ACCUCHECK WAS 149, BARELY MISSING THE NEED FOR LISPRO INSULIN. SLEP MOST OF NIGHT.
[2019-05-06 04:10] VITALS: BP 134/63
[2019-05-06 05:44] LABS: ALBUMIN 3.5 g/dL (3.4-5.0); CALCIUM 8.6 mg/dL (8.5-10.1); CREATININE 1.1 mg/dL (0.7-1.3); POTASSIUM 4.6 mmol/L (3.5-5.1); TOTAL BILIRUBIN 0.8 mg/dL (<0.1-1.0); TOTAL PROTEIN 7.2 g/dL (6.4-8.2)
[2019-05-06 05:48] LABS: HEMATOCRIT 43.6 % (42.0-52.0); HEMOGLOBIN 14.4 gm/dL (14.0-18.0); MCH 29.5 pg (26.0-34.0); MCV 89.4 fL (80.0-100.0); RBC 4.87 mil/uL (4.50-6.00); RDW 14.3 % (10.5-14.5); WBC 8.8 thou/uL (4.0-11.0)
[2019-05-06 08:12] VITALS: BP 129/64
[2019-05-06] MEDS ORDERED: HYDROCODON-ACE1 EAC7 PO (14:20)
--- NOTE | 2019-05-06 14:30 | NUR ---
PT A&OX4, IV INTACT IN L HAND. LAP SITES X4 INTACT WITH LEILA DRAIN. PT IS FEELING BETTER AND PASSING FLATULENCE. AMBULATING IN FAN. IN AND PULLED OUT LEILA DRAIN. DC ORDERS RECIEVED, IV REMOVED FROM L HAND, DC INSTRUCTIONS, SCRIPTS AND F/U APPOINT. REVEIEWED WITH PT.
[2019-05-06 15:36] VITALS: BP 129/64
--- NOTE | 2019-05-06 19:06 | PATH ---
[facility] [address] [place] [address] PATHOLOGY RPT PROCEDURE Name: JOSEPH BRITTON Room #: 430-P [facility] IN M.R.#: [id number] Admission: 05/05/19 Date of : 43 Discharge: 05/06/19 Report #: [id number] Path Case #: [id number] [facility] Accession Number: [id number] . 01 Material submitted: . gallbladder - GALLBLADDER . 01 Clinical history: . Cholecystitis . 02 Diagnosis: Gallbladder, cholecystectomy: - Moderate chronic cholecystitis with prominent germinal centers and metaplastic changes. - Negative for dysplasia or malignancy. - Cholelithiasis. - Incidental reactive lymph node. . (IUV:mml; 05/06/2019) QLM/05/06/2019 . 02 Electronically signed: . Tracey Bryant MD, Pathologist NPI- [id number] . 01 Gross description: . Received in formalin labeled "Joseph Britton, gallbladder," is a previously opened gallbladder measuring 8.5 x 3.6 x 2.2 cm in greatest dimensions. The serosal surface is wrinkled to shaggy, camp-bautista to diffusely hemorrhagic and partially adipose-covered in appearance. A bautista-brown possible lymph node is noted near the infundibulum, measuring 0.9 x 0.8 x 0.4 cm. The mucosa is granular and bautista-brown in appearance, measuring 0.1 cm in thickness with a gallbladder wall thickness of up to 0.9 cm including attached adipose tissue. A raised area of possible strictured mucosa is noted in the center of the gallbladder interior, extending to within 3.1 cm of the infundibulum. Sectioning through this area reveals multiple possible cysts in the gallbladder wall measuring up to 0.2 cm in maximum dimension. Sectioning through the fundal aspect reveals a multicystic nodule measuring up to 1.2 cm on cut surface. No further polyps or nodules are noted grossly. Calculi and calculus fragments are present within the specimen container that are friable, granular and black in appearance, ranging from 0.1 to 0.9 cm in maximum dimension. The specimen is submitted representatively as follows: . A1: Assistant Customer Service Manager infundibulum, body and fundus A2: Assistant Customer Service Manager possible cysts in strictured area A3: Assistant Customer Service Manager fundal aspect multicystic nodule [address] [address] PATHOLOGY RPT PROCEDURE Name: JOSEPH BRITTON Jessica Room #: 430-P [facility] IN M.R.#: [id number] Admission: 05/05/19 Date of : 43 Discharge: 05/06/19 Report #: [id number] Path Case #: [id number] A4: Entire quadrisected possible lymph node (DAC; 05/05/2019) XDC/XDC . 02 Pathologist provided ICD-10: K80.10 . 02 CPT . 384073 Specimen Comment: A courtesy copy of this report has been sent to Specimen Comment: [phone], . Specimen Comment: Report sent to / DR PAGE Performed at: [address] [facility], [place], [place] [id number] MD Rajesh Serrano MD Phone: [phone] Performed at: [address] [id number] MD Tracey Brynat MD Phone: [phone]
== END 2019-05-06 16:29 | disposition home or self-care (01) | DRG 418 ==
LOC: OR 12:36 → TBA 14:38 → OR 15:28 → 4E 20:13 → OR 20:14 → 4E 05-05 12:37
PROVIDERS: ADMIT Surgery
PROC: 0FT44ZZ Resection of Gallbladder, Percutaneous Endoscopic Approach (ICD-10-PCS; principal; 2019-05-04)
PROC: BF121ZZ Fluoroscopy of Gallbladder using Low Osmolar Contrast (ICD-10-PCS; principal; 2019-05-04)
DX: K80.01 Calculus of gallbladder with acute cholecystitis with obstruction (principal); K82.1 Hydrops of gallbladder; E11.9 Type 2 diabetes mellitus without complications; I25.10 Atherosclerotic heart disease of native coronary artery without angina pectoris; Z95.1 Presence of aortocoronary bypass graft; Z90.49 Acquired absence of other specified parts of digestive tract; Z83.3 Family history of diabetes mellitus; Z79.899 Other long term (current) drug therapy
CPT/HCPCS: 10084; 10783; 50010; 50101; 50411; 50555; 50558; 51297; 51489; 51687; 51975; 53307; 53310; 55245; 55317; 56462; 56525; 56526; 62110; 62900; 70005

== ENCOUNTER → 2019-11-17 | Outpatient (CLI) | payer OTHER ==
[~2019-11-17] MED LIST changes: +HYDROCODON-ACE1 EAC7 PO
== END ==
LOC: SJCVC 13:27
DX: I25.10 Atherosclerotic heart disease of native coronary artery without angina pectoris (principal); I65.23 Occlusion and stenosis of bilateral carotid arteries; E78.5 Hyperlipidemia, unspecified; G47.33 Obstructive sleep apnea (adult) (pediatric); E11.9 Type 2 diabetes mellitus without complications; Z95.1 Presence of aortocoronary bypass graft; Z90.49 Acquired absence of other specified parts of digestive tract; Z79.899 Other long term (current) drug therapy; Z87.891 Personal history of nicotine dependence

== ENCOUNTER → 2020-05-21 | Outpatient (CLI) | payer OTHER | LOC: SJCVC 13:47 | PROVIDERS: ATTEND Internal Medicine | DX: I25.10 Atherosclerotic heart disease of native coronary artery without angina pectoris (principal); I65.23 Occlusion and stenosis of bilateral carotid arteries; E78.5 Hyperlipidemia, unspecified; G47.33 Obstructive sleep apnea (adult) (pediatric); E11.9 Type 2 diabetes mellitus without complications; Z95.1 Presence of aortocoronary bypass graft ==

== ENCOUNTER → 2020-11-19 | Outpatient (CLI) | payer OTHER | LOC: SJCVC 14:20 | PROVIDERS: ATTEND Internal Medicine | DX: I25.810 Atherosclerosis of coronary artery bypass graft(s) without angina pectoris (principal); E11.9 Type 2 diabetes mellitus without complications; I65.23 Occlusion and stenosis of bilateral carotid arteries; E78.5 Hyperlipidemia, unspecified; G47.33 Obstructive sleep apnea (adult) (pediatric); Z79.899 Other long term (current) drug therapy; Z79.84 Long term (current) use of oral hypoglycemic drugs; Z82.49 Family history of ischemic heart disease and other diseases of the circulatory system; Z95.1 Presence of aortocoronary bypass graft; Z87.891 Personal history of nicotine dependence ==

== ENCOUNTER → 2021-06-25 | Outpatient (CLI) | payer OTHER | LOC: SJCVCIMAG 14:14 | PROVIDERS: ATTEND Internal Medicine | DX: I25.10 Atherosclerotic heart disease of native coronary artery without angina pectoris (principal); Z95.1 Presence of aortocoronary bypass graft ==